=== PATIENT | male | born 1990 | race Caucasian/White ===

== ENCOUNTER → 2019-04-12 | Outpatient (CLI) | payer OTHER ==
--- NOTE | 2019-04-12 18:47 | REP ---
PA and lateral chest: There are no comparisons. The lung israel are clear. The cardiac size is normal. The jamee, mediastinum, and skeletal structures are unremarkable. Impression: Negative PA and lateral chest. Electronically Signed by Sarwat Davis MD 04/12/2019 06:38 P
== END ==
LOC: M LRY 17:36
PROVIDERS: ATTEND Physician Assistant
DX: J40 Bronchitis, not specified as acute or chronic (principal)

== ENCOUNTER → 2019-06-01 | Outpatient (REF) | payer OTHER | LOC: M SFHCLERA 14:49 | PROVIDERS: ATTEND Nurse Practitioner Family | DX: J02.9 Acute pharyngitis, unspecified (principal) ==

== ENCOUNTER 2019-08-07 13:46 | Emergency (ER) | payer OTHER ==
[~2019-08-07] VITALS: Ht 177.8 cm; Wt 121.2 kg
[2019-08-07] MEDS ORDERED: NS 1,000 ML IV ONE (14:00)
[2019-08-07] MEDS ORDERED: KETOROLAC 30 MG/ML VIAL (J1885) IV ONE (14:00)
[2019-08-07] MEDS ORDERED: ONDANSETRON 4MG/2ML VIAL (J2405) IV ONE (14:00)
[2019-08-07 14:20] LABS: BASO # 0.1 10^3/uL (0.0-0.2); BASO % 0.9 % (0.0-1.0); EOS # 0.3 10^3/uL (0.0-0.5); EOS % 3.3 % (0.0-3.0); HEMATOCRIT 45.9 % (42.0-52.0); HEMOGLOBIN 15.8 g/dl (13.5-17.5); LYMPH # 1.9 10^3/uL (1.5-5.0); LYMPH % 19.4 % (24.0-44.0); MEAN CORPUSCULAR HEMOGLOBIN 29.4 pg (27.0-33.0); MEAN CORPUSCULAR HGB CONC 34.4 g/dl (32.0-36.5); MEAN CORPUSCULAR VOLUME 85.3 fl (80.0-96.0); MONO # 0.7 10^3/uL (0.0-0.8); MONO % 7.4 % (0.0-5.0); NEUTROPHILS # 6.7 10^3/uL (1.5-8.5); NEUTROPHILS % 68.3 % (36.0-66.0); PLATELET COUNT, AUTOMATED 259 10^3/uL (150-450); RED BLOOD COUNT 5.38 10^6/uL (4.30-6.10); WHITE BLOOD COUNT 9.8 10^3/uL (4.0-10.0)
[2019-08-07] MEDS ORDERED: BUPR300T92 PO (14:20)
[2019-08-07] MEDS ORDERED: ZOLO50TA PO (14:20)
[2019-08-07 14:50] LABS: ALBUMIN 4.2 GM/DL (3.2-5.2); BILIRUBIN,DIRECT 0.1 MG/DL (0.0-0.2); BILIRUBIN,TOTAL 0.6 MG/DL (0.2-1.0); TOTAL PROTEIN 7.3 GM/DL (6.4-8.2)
[2019-08-07] MEDS ORDERED: TAMSULOSIN 0.4 MG CAP PO ONE (15:15)
--- NOTE | 2019-08-07 15:20 | REP ---
CT of the abdomen pelvis without IV or bowel contrast for right flank pain: There is a 4 ml calculus posterolaterally in the urinary bladder on the right, possibly a right ureteral calculus that has recently passed into the bladder. There is no hydronephrosis or perinephric stranding on the right. There are no calculi, hydronephrosis or perinephric stranding on the left. The visualized lung [place] are unremarkable. The unenhanced hepatic parenchyma, gallbladder, pancreas, spleen, adrenals, abdominal aorta, bowel and mesentery are unremarkable. Pelvis: The appendix is unremarkable. The pelvic bowel loops are unremarkable. The there is no adenopathy or ascites. Impression: There is a 4 mm calculus posterolateral on the right the urinary bladder, possibly recently passed into the bladder from the right ureter. There is no hydronephrosis or perinephric stranding. Electronically Signed by Sarwat Davis MD 08/07/2019 03:12 P
[2019-08-07] MEDS ORDERED: FLOM0.4C39 PO (15:45)
[2019-08-07] MEDS ORDERED: NORC1TAB7 PO (15:45)
[2019-08-07 16:20] VITALS: BP 143/83
== END 2019-08-07 16:22 | disposition home or self-care (01) ==
LOC: M ED 13:46
DX: N20.1 Calculus of ureter (principal); Z79.899 Other long term (current) drug therapy
CPT/HCPCS: 74176; 80047; 80076; 81001; 83690; 85025; 96361; 96374; 96375; 99284; J1885; J2405

== ENCOUNTER → 2019-08-30 | Outpatient (REF) | payer OTHER ==
[~2019-08-30] MED LIST: BUPR300T92 PO; FLOM0.4C39 PO; NORC1TAB7 PO; ZOLO50TA PO
[2019-08-30 15:56] LABS: AMORPHOUS SEDIMENT MODERATE (NEGATIVE); APPEARANCE, URINE TURBID (CLEAR); BACTERIA, URINE AUTO NEGATIVE (NEGATIVE); BILIRUBIN, URINE AUTO NEGATIVE (NEGATIVE); BLOOD, URINE BLOOD NEGATIVE (NEGATIVE); GLUCOSE, URINE (UA) AUTO NEGATIVE (NEGATIVE); KETONE, URINE AUTO NEGATIVE (NEGATIVE); LEUKOCYTE ESTERASE, URINE AUTO NEGATIVE (NEGATIVE); MUCUS, URINE SMALL (NEGATIVE); NITRITE, URINE AUTO NEGATIVE (NEGATIVE); PROTEIN, URINE AUTO NEGATIVE (NEGATIVE); RBC, URINE AUTO 0 /HPF (0-3); SPECIFIC GRAVITY URINE AUTO 1.028 (1.002-1.035); SQUAMOUS EPITHELIAL CELL UR AU 0 /HPF (0-6); UROBILINOGEN, URINE AUTO 0.2 mg/dL (0.0-2.0); WBC, URINE AUTO 0 /HPF (0-3)
[2019-08-30 15:59] LABS: COLOR, URINE YELLOW (YELLOW)
== END ==
LOC: M SMT 13:21
PROVIDERS: ATTEND Nurse Practitioner Family
DX: N20.0 Calculus of kidney (principal)
CPT/HCPCS: 81001; 87086; G0463

== ENCOUNTER 2020-02-28 20:49 | Emergency (ER) | payer OTHER ==
[~2020-02-28] VITALS: Ht 177.8 cm; Wt 120.4 kg
--- NOTE | 2020-02-28 22:11 | REPVR ---
PROCEDURE INFORMATION: Exam: XR Left Knee Exam date and time: 02/28/2020 9:54 PM Age: 29 years old Clinical indication: Pain and injury or trauma; Fall; Initial encounter; Sprain or strain; Patella or knee; Left TECHNIQUE: Imaging protocol: XR Left knee. Views: 1 or 2 views. COMPARISON: No relevant prior studies available. FINDINGS: Bones/joints: Cortical irregularity along the proximal medial tibial cortex. Clinical correlation to exclude an impacted fracture suggested. Otherwise unremarkable. Soft tissues: Normal. IMPRESSION: Cortical irregularity along the proximal medial tibial cortex. Clinical correlation to exclude an impacted fracture suggested. Otherwise unremarkable. Electronically signed by: Dean Hyman On 02/28/2020 22:11:56 PM
[2020-02-28] MEDS ORDERED: NORCO, ANEXSIA 5/325MG TABLET (HYDROcodone/ACETAMINOPHEN) PO ONE (22:45)
--- NOTE | 2020-02-28 22:59 | REPVR ---
PROCEDURE INFORMATION: Exam: CT Left Lower Extremity Without Contrast, Knee Exam date and time: 02/28/2020 10:48 PM Age: 29 years old Clinical indication: Other: Unable to bear weight; Additional info: Pop sensation with turning and unable to bear weight TECHNIQUE: Imaging protocol: CT of the Left lower extremity without contrast was performed. Exam focused on the knee. Radiation optimization: All CT scans at this facility use at least one of these dose optimization techniques: automated exposure control; mA and/or kV adjustment per patient size (includes targeted exams where dose is matched to clinical indication); or iterative reconstruction. COMPARISON: CR Knee, Ap, Lat LEFT 02/28/2020 9:46 PM FINDINGS: Bones/joints: Medial tibial osteophyte demonstrated. Soft tissues: Pretibial soft tissue edema. Knee joint effusion. IMPRESSION: 1. Knee joint effusion. 2. Pretibial soft tissue edema. Electronically signed by: Dean Hyman On 02/28/2020 23:00:07 PM
[2020-02-28 23:57] VITALS: BP 150/77
== END 2020-02-28 23:58 | disposition home or self-care (01) ==
LOC: M ED 20:49
DX: M25.562 Pain in left knee (principal); Z79.899 Other long term (current) drug therapy